=== PATIENT | male | born 1985 | race Caucasian/White ===

== ENCOUNTER 2017-10-09 17:54 | Emergency (ER) | payer OTHER ==
[~2017-10-09] VITALS: Ht 182.9 cm; Wt 152.0 kg
[2017-10-09] MEDS ORDERED: COZAAR50 MG (18:39)
== END 2017-10-09 21:47 | disposition home or self-care (01) ==
LOC: ER 17:54
DX: M62.830 Muscle spasm of back (principal); R10.11 Right upper quadrant pain

== ENCOUNTER 2017-10-12 17:47 | Emergency (ER) | payer OTHER ==
[~2017-10-12] VITALS: Ht 182.9 cm; Wt 104.3 kg
[~2017-10-12 17:47] MED LIST: COZAAR50 MG
== END 2017-10-12 21:19 | disposition home or self-care (01) ==
LOC: ER 17:47
DX: R42 Dizziness and giddiness (principal)

== ENCOUNTER 2017-10-21 18:39 | Emergency (ER) | payer OTHER ==
[~2017-10-21] VITALS: Ht 182.9 cm; Wt 98.4 kg
[2017-10-21] MEDS ORDERED: GLUCOPHAGE XR750 MG (19:20)
== END 2017-10-21 21:48 | disposition home or self-care (01) ==
LOC: ER 18:39
DX: R53.81 Other malaise (principal)